=== PATIENT | male | born 1990 | race American Indian/Alaskan Native ===

== ENCOUNTER 2019-07-02 14:30 | Emergency (ER) | payer SELFPAY ==
[2019-07-02 15:31] VITALS: BP 119/70
[2019-07-02] MEDS ORDERED: ACETAMINOPHEN 325 MG/10.15 ML ORAL LIQD UNIT DOSE PO ONE (15:34)
[2019-07-02] MEDS ORDERED: ACETAMINOPHEN 325 MG/10.15 ML ORAL LIQD UNIT DOSE ONE (15:37)
[2019-07-02] MEDS ORDERED: SODIUM CHLORIDE 0.9% 1000 ML 1,000 ML IV ONE (16:16)
[2019-07-02] MEDS ORDERED: KETOROLAC 30 MG/1 ML INJ IV ONE (16:16)
[2019-07-02] MEDS ORDERED: ONDANSETRON 4 MG/2 ML INJ IV ONE (16:16)
[2019-07-02] MEDS ORDERED: FAMOTIDINE 20 MG/2 ML INJ IV ONE (16:16)
--- NOTE | 2019-07-02 18:20 | Emergency Department Report ---
ED General Adult HPI - General Chief complaint: Abdominal Pain Stated complaint: HIGH FEVER/VOMIT/WEAK Time Seen by Provider: 07/02/19 16:08 Source: patient Mode of arrival: Ambulatory Limitations: No Limitations - History of Present Illness Initial comments: Patient is a 29-year-old F [place] male who is presenting with fever. Patient has cough chills body aches nausea vomiting with mild diarrhea for the last day. Patient denies any sick contacts. Patient states the body aches are 5 out of 10 in severity. Patient has been unable to keep anything down throughout the day. Patient's also is complaining of some mild sore throat. He denies neck stiffness at this time. Severity scale (0 -10): 10 - Related Data Previous Rx's Medication Instructions Recorded Last Taken Type Albuterol INH(or & Nicu Only) 2 puff IH QID PRN #1 inhalation 07/02/19 Unknown Rx [ProAir HFA Inhaler] Benzonatate [Tessalon Perles] 100 mg PO Q8HR #10 capsule 07/02/19 Unknown Rx Ondansetron [Zofran Odt] 4 mg PO Q8HR #10 tab.rapdis 07/02/19 Unknown Rx predniSONE [Deltasone] 20 mg PO QDAY #5 tab 07/02/19 Unknown Rx Allergies Allergy/AdvReac Type Severity Reaction Status Date / Time No Known Allergies Allergy Verified 07/02/19 14:46 ED Review of Systems ROS: Stated complaint: HIGH FEVER/VOMIT/WEAK Other details as noted in HPI Comment: All other systems reviewed and negative ED Past Medical Hx - Past Medical History Previous Medical History?: No - Surgical History Past Surgical History?: No - Social History Smoking Status: Never Smoker Substance Use Type: None - Medications Home Medications: Home Medications Medication Instructions Recorded Confirmed Last Taken Type Albuterol INH(or & Nicu Only) 2 puff IH QID PRN #1 inhalation 07/02/19 Unknown Rx [ProAir HFA Inhaler] Benzonatate [Tessalon Perles] 100 mg PO Q8HR #10 capsule 07/02/19 Unknown Rx Ondansetron [Zofran Odt] 4 mg PO Q8HR #10 tab.rapdis 07/02/19 Unknown Rx predniSONE [Deltasone] 20 mg PO QDAY #5 tab 07/02/19 Unknown Rx ED Physical Exam - General Limitations: No Limitations General appearance: alert, in no apparent distress - Head Head exam: Present: atraumatic, normocephalic - Eye Eye exam: Present: normal appearance, PERRL, EOMI - ENT ENT exam: Present: mucous membranes moist - Neck Neck exam: Present: normal inspection - Respiratory Respiratory exam: Present: normal lung sounds bilaterally. Absent: respiratory distress, wheezes, rales, rhonchi - Cardiovascular Cardiovascular Exam: Present: regular rate, normal rhythm. Absent: systolic murmur, diastolic murmur, rubs, gallop - GI/Abdominal GI/Abdominal exam: Present: soft, normal bowel sounds. Absent: distended, tenderness, guarding, rebound - Rectal Rectal exam: Present: deferred - Extremities Exam Extremities exam: Present: normal inspection - Back Exam Back exam: Present: normal inspection - Neurological Exam Neurological exam: Present: alert, oriented X3 - Psychiatric Psychiatric exam: Present: normal affect, normal mood - Skin Skin exam: Present: warm, dry, intact, normal color. Absent: rash ED Course Vital Signs 07/02/19 07/02/19 07/02/19 14:48 15:34 16:51 Temperature 99.8 F H 103 F H Pulse Rate 103 H Respiratory 20 18 Rate Blood Pressure 119/70 O2 Sat by Pulse 93 Oximetry ED Medical Decision Making - Medical Decision Making Patient was hydrated and given antiemetics. After fluids the patient is feeling somewhat improved. Patient likely does have influenza or flulike illness. Patient will be given medication for symptomatic relief including nausea medicines and will be discharged home. Critical care attestation.: If time is entered above; I have spent that time in minutes in the direct care of this critically ill patient, excluding procedure time. ED Disposition Clinical Impression: Influenza, Acute gastroenteritis Disposition: DC-01 TO HOME OR SELFCARE Is pt being admited?: No Does the pt Need Aspirin: No Condition: Stable Instructions: Influenza (ED), Acute Nausea and Vomiting (ED) Referrals: KATERINA BONILLA MD [Referring] - 3-5 Days Time of Disposition: 18:21
== END 2019-07-02 19:01 | disposition home or self-care (01) ==
LOC: ED 14:30
DX: K52.9 Noninfective gastroenteritis and colitis, unspecified (principal); J11.1 Influenza due to unidentified influenza virus with other respiratory manifestations
CPT/HCPCS: 96361; 96374; 96375; 99282; J1885; J2405; J7030